=== PATIENT | female | born 2000 | race Caucasian/White ===

== ENCOUNTER → 2022-06-13 | Outpatient (REF) | payer OTHER ==
[2022-06-13 19:41] LABS: ESTRADIOL 180.3 PG/ML; LUTEINIZING HORMONE 1.9 mIU/mL
== END ==
LOC: M LAB REF 18:10
PROVIDERS: ATTEND Physician Assistant
DX: L68.0 Hirsutism (principal)

== ENCOUNTER → 2022-08-08 | Outpatient (REF) | payer OTHER | LOC: M LAB REF 16:28 | PROVIDERS: ATTEND Physician Assistant | DX: Z12.4 Encounter for screening for malignant neoplasm of cervix (principal); Z11.3 Encounter for screening for infections with a predominantly sexual mode of transmission ==